=== PATIENT | male | born 1970 | race Caucasian/White ===

== ENCOUNTER 2020-01-26 07:36 | Outpatient (CLI) | payer OTHER, SELFPAY ==
--- NOTE | 2020-01-26 | ECHO_ITS ---
Patient Info Name: Jake Estrada Age: 49 years : 1970 Gender: Male Ht: 68 in Wt: 230 lbs BSA: 2.28 m2 HR: 73 bpm BP: 133 / 94 mmHg Technical Quality: Good Exam Date: 01/26/2020 7:54 AM Exam Location: [facility] Pulmonary Patient Status: Outpatient Admit Date: 01/26/2020 Staff Ordering Physician: KiahMaranda Glassblower: Loly Ley RDCS Attending Provider: Kiah, Maranda HERNANDEZ Referring Physician: Kiah HALE; Exam Type: CA echo doppler color flow Study Info Indications I10 - Essential (primary) hypertension Complete two-dimensional, color flow and Doppler transthoracic echocardiogram is performed. Summary 1. Normal LV size and wall thickness, normal LV systolic and diastolic function; ejection fraction estimated at about 55-60%. No significant valvular abnormalities on the echo and Doppler. RVSP 35 mmHg. Left Ventricle Left ventricular chamber dimension is normal. Left ventricular systolic function is normal, estimated at 55-60%. There is no increased left ventricular wall thickness. Left ventricular septal wall motion is normal. The left ventricular diastolic function is normal. Right Ventricle Right ventricular chamber dimension is normal. Right ventricular systolic function is normal. Left Atria Left atrial chamber dimension is normal. Right Atria Right atrial chamber dimension is normal. Aortic Valve The aortic valve is trileaflet. There is no aortic valve sclerosis. There is no aortic valve stenosis. There is no aortic valve regurgitation. Pulmonic Valve The pulmonic valve is normal. There is trace pulmonic regurgitation. Mitral Valve The mitral valve has normal leaflets. There is no mitral valve stenosis. There is no mitral valve regurgitation. Tricuspid Valve The tricuspid valve leaflets are normal. There is no significant tricuspid valve stenosis. There is no tricuspid valve regurgitation. No pulmonary hypertension, estimated pulmonary arterial systolic pressure is 35 mmHg. Pericardium/Pleural The pericardium appears normal. There is no pericardial effusion. Inferior Vena Cava Normal inferior vena cava with >50% collapse upon inspiration consistent with normal right atrial pressure, 5 mmHg. Aorta The aortic root size at the sinus of Valsalva is normal. The prox ascending aorta size is normal. Left Ventricular Outflow Tract Name Value Normal LVOT 2D LVOT Diameter 1.9 cm LVOT Doppler LVOT Peak Gradient 4 mmHg LVOT Mean Gradient 3 mmHg LVOT VTI 21 cm LVOT VTI/AV VTI Ratio 1.0 LVOT Stroke Volume 61 ml LVOT CO 4.3 l/min LVOT CI 1.9 l/min/m2 Pulmonic Valve Name Value Normal RVOT Doppler
== END 2020-01-26 07:37 | disposition home or self-care (01) ==
LOC: ANHCARD 07:37
PROVIDERS: PCP Nurse Practitioner Family; Visit Provider Nurse Practitioner Family
DX: I10 Essential (primary) hypertension (principal)
CPT/HCPCS: 93306

== ENCOUNTER 2020-02-17 00:43 | Outpatient (CLI) | payer OTHER, SELFPAY ==
[2020-02-17 18:07] LABS: SARS-CoV-2 RNA PCR Negative
== END 2020-02-17 00:44 | disposition home or self-care (01) ==
LOC: ANHCOVIDDT 00:43
PROVIDERS: PCP Nurse Practitioner Family; Visit Provider Internal Medicine Gastroenterology
DX: Z01.812 Encounter for preprocedural laboratory examination (principal); Z11.59 Encounter for screening for other viral diseases
CPT/HCPCS: 87635; C9803; U0003

== ENCOUNTER 2020-02-19 01:34 | Day surgery (SDC) | payer OTHER, SELFPAY ==
[2020-02-15 11:26] VITALS: BMI 35.0
[2020-02-19 06:30] VITALS: BP 144/95; PULSE 95; RESP 12; TEMP 36.4
[2020-02-19 06:43] VITALS: BMI 34.4
[2020-02-19] MEDS: LACTATED RINGERS 1,000 ML 150 ML IV CONT (06:51)
--- NOTE | 2020-02-19 07:02 | P.HP_ITS ---
History of Present Illness History of Present Illness Consent: Risks, benefits, and alternatives have been discussed and questions answered. Patient agrees to proceed with procedure. Chief complaint: Neoplasm Screening Narrative: Jake Estrada is a 49 year old W male referred for his 1st screening colonoscopy. Patient is an average risk patient. No family history of colon polyps or colon cancer. Patient is asymptomatic. [facility] Past Medical History Medical History (Updated 02/19/20 @ 07:05 by Jonathan Kirkpatrick MD) History of obstructive sleep apnea History of supraventricular tachycardia Hypertension Surgical History Surgical History (Updated 02/19/20 @ 07:05 by Jonathan Kirkpatrick MD) Status post ablation operation for arrhythmia Status post left foot surgery Meds Home Medications and Allergies Home Medications Medication Instructions Recorded Confirmed Type coQ10 (ubiquinol) 100 mg PO DAILY 02/15/20 02/15/20 History hydrochlorothiazide 12.5 mg PO DAILY 02/15/20 02/15/20 History [id number]-[id number] 1 cap PO DAILY 02/15/20 02/15/20 History [krill oil] lisinopril 10 mg PO DAILY 02/15/20 02/15/20 History [id number] 1 mg PO BID 02/15/20 02/15/20 History [Airborne (ascorbate sodium)] Allergies Allergy/AdvReac Type Severity Reaction Status Date / Time No Known Allergies Allergy Verified 02/19/20 06:36 Vital Signs Vital Signs - 24 hr 02/19/20 06:30 Temperature 36.4 C Pulse Rate 95 Respiratory Rate 12 Blood Pressure 144/95 H Exam Const: Orientation/consciousness: patient oriented x3 Resp: Auscultation: clear to auscultation bilaterally Cardio: Rate: regular rate Rhythm: regular rhythm Heart sounds: no murmurs GI: GI Palp: Yes Soft to palpation, No Tenderness to palpation present (GI), Yes No hepatosplenomegaly present and No Palpable mass present Auscultation: normal bowel sounds Neuro: General: patient oriented x3 and no focal motor deficits Extrem: General: no pedal edema Assessment and Plan Additional Plan screening colonoscopy in average risk patient
--- NOTE | 2020-02-19 07:12 | WPDANESEPPF ---
Anes - Initial Pre Proc Eval Procedure: Operation Date: 02/19/20 08:00 Proposed Procedures p Screening Colonoscopy - Jonathan Kirkpatrick MD Date/Time: 02/19/20 07:12 Surgeon: Jonathan Kirkpatrick MD Pre Op Diagnosis: Neoplasm Screening Patient Data Age: 49 Gender: M Height: 5 ft 8 in Weight: 102.6 kg Last Vital Signs Temp 36.4 C 02/19/20 06:30 Pulse 95 02/19/20 06:30 Resp 12 02/19/20 06:30 BP 144/95 H 02/19/20 06:30 Allergies Allergy/AdvReac Type Severity Reaction Status Date / Time No Known Allergies Allergy Verified 02/19/20 06:36 Home Medications Medication Instructions Recorded Confirmed Type coQ10 (ubiquinol) 100 mg PO DAILY 02/15/20 02/15/20 History hydrochlorothiazide 12.5 mg PO DAILY 02/15/20 02/15/20 History [id number]-3-[id number]-wdh-swazqye-ast 1 cap PO DAILY 02/15/20 02/15/20 History [krill oil] lisinopril 10 mg PO DAILY 02/15/20 02/15/20 History [id number] 1 mg PO BID 02/15/20 02/15/20 History [Airborne (ascorbate sodium)] Patient hx anesthesia problems: none Family hx anesthesia problems: none PMFSH Past Medical History Medical History History of obstructive sleep apnea History of supraventricular tachycardia Hypertension Surgical History Surgical History Status post ablation operation for arrhythmia Status post left foot surgery Anes - Eval Final PreProcedure Day of Procedure 02/19/20 07:12 Patient weight: obese Heart: regular rate and rhythm Lungs: clear to auscultation Airway: Mallampati scale class II Neurological: alert and oriented Last oral intake: >/= 8 hours ASA classification: III Emergent: no Anesthetic plan: proceed Anesthesia type and monitoring: general GIVS and standard monitoring Informed Consent: The patient's anesthetic plan and its attendant risks and benefits were discussed with the patient/family/POA. Questions were solicited and answers provided to the satisfaction of the patient/family/POA.
[2020-02-19 08:25] VITALS: BP 94/59; PULSE 68; RESP 17; O2SAT 96
[2020-02-19 08:35] VITALS: BP 106/70; PULSE 69; RESP 19; O2SAT 96
[2020-02-19 08:45] VITALS: BP 115/78; PULSE 64; RESP 21; O2SAT 96
== END 2020-02-19 09:00 | disposition home or self-care (01) ==
PROVIDERS: PCP Nurse Practitioner Family; Visit Provider Internal Medicine Gastroenterology
PROC: 0DJD8ZZ Inspection of Lower Intestinal Tract, Via Natural or Artificial Opening Endoscopic (ICD-10-PCS; CPT 45378; principal; 2020-02-19 08:00)
DX: Z12.11 Encounter for screening for malignant neoplasm of colon (principal); D12.2 Benign neoplasm of ascending colon; K64.8 Other hemorrhoids; K64.4 Residual hemorrhoidal skin tags; I10 Essential (primary) hypertension; E66.9 Obesity, unspecified; Z68.34 Body mass index [BMI] 34.0-34.9, adult
CPT/HCPCS: 45385; 88305; J2704; J7120